=== PATIENT | male | born 1940 | race Caucasian/White ===

== ENCOUNTER 2017-11-18 08:00 | Outpatient (RCR) | payer MEDICARE, OTHER, SELFPAY ==
--- NOTE | 2017-09-14 09:50 | HP.PTEVAL_ITS ---
Patient's Visit Information THOMAS PETERSON is a 77 year old M referred to Physical Therapy by Efrain Sahu MD with a diagnosis of Unsteady gait. Date of Evaluation: 09/14/17 Physical Therapist: Javon Ortiz DPT, [place] - Visit Plan Frequency: 2x /Week Duration: 4-6 Weeks Plan: RECOMMENDED... patient return to doctor due to obvious undiagnosed weakness/neuropathy effecting strength adn sensation in feet and ankles. Recommend doctor look into this and see if other testing/treatment is necessary. Therapy appropriate after this check up for. 1. neurocom balance assessment(will need doctor order). 2. ankle strength and ROM. 3. balance related weight shift exercises adn progress to HEP. Pt to call after doctor visit to schedule or inform me on doctors recommendations. - Subjective Subjective: H/O knee problems after falling off a roof in .Biggest problem now is standing in one position to work or talk. he has to keep moving his feet like a child who has to go potty. Does OK walking. This has been going on 6-7 months. Pain not an issue. No numbness. No spinning. This constant movement of feet is just annoying. and he lives by himself. Does everything himself but not as active as he used to be. Careful with what he does. Walks alot and it is not a problem even on uneven ground. Basic ADLs are Ok. [address] acres at home adn he works it well. Sleeps well but has to self cath to urinate. - Objective Walks with very little weight shift and slight steppage gait. Knees bent much of time, hunched forward. Trasnfers I without UE. Steps require railing for safety. Static balance is fair - as he tends posterior na dn needs a small back step often to recover. With focus, he can mitigate this. Ankle strength is poor at 2+ R DF and 3- L DF, inv and eversion are 3- B , PF is 3+ B and unable to heel raise. Knee and hip strength are 4/5. Sensation in LE seems diminished to gross light touch more laterally distal. reflexes show no clonus , 1/3 patella and achilles B. VOR walking is OK. - Balance Scores Functional Gait Assessment Score: 21 % Disability: 30.0000 CATSIB Score (Max score 120 seconds): 65 - Goals Goal 1:: FGA to diminish fall risk Goal Time Frame: 4-6 Weeks Goal 2:: Stand and talk/work without taking multiple balance steps and report 50 % improvement in this condition. Goal Time Frame: 4-6 Weeks Goal 3:: I approp HEP to limit future digression Goal Time Frame: 4-6 Weeks - Rehabilitation Potential Physical Therapy Diagnosis: Unsteady gait/stance likely due to neuropathy of unknown etiology at this point Rehabilitation Potential: Questionable - Anticipated Interventions Patient/Client Instruction: Educate patient on: Condition, Risk Factors For the Purpose of:: To improve safety with gait Therapeutic Exercise to Include: Strength training, Balance training, Active ROM Comment: ankles and weight shifts For the Purpose of:: To improve muscle performance and motor function, To improve safety with gait Thank you for the opportunity to evaluate your patient. For Medicare and Medicare HMO plans, please review the plan of care and approve it. It will need to be FAXED BACK to us at [phone] for Medicare purposes. Please let me know if there are questions or concerns regarding this plan of care. Physician Signature: Date:
--- NOTE | 2017-10-04 15:09 | HP.PTCOM ---
PT Communication Note 10/04/[address] Efrain Sahu MD , Thank you for the referral of Zelalem Mcnair to our clinic. Today he was tested on our [employer] Balance Machine and enclosed are the patients test results. Looking at the results of the Sensory Organization Test (SOT), the pt's overall score is significantly low for someone of his age. He had trouble using all 3 of her sensory systems to help him maintain his balance. I did recommend that the patient use an assistive device for safety. His center of gravity alignment is slightly more to the Left as well. On the Motor Control Test (MCT), the pt's overall score was in the normal range but every time the force plate moved the pt immediately reached for the velez to prevent a fall. The patients score on the Limits of Stability Test (LOS) was unable to compile due to the pt losing his balance with every trial. At this point, I will see the pt to work on hip and ankle strength, weight shifting, gait training with an assistive device with HEP. Pt might benefit from Nerve Conduction Test, ankle braces and/or a Neuro consult. Sincerely, Jigna Tolentino Contact Information
--- NOTE | 2017-10-04 15:18 | HP.PTCOM_ITS ---
PT Communication Note 10/04/[address] Efrain Sahu MD , Thank you for the referral of Zelalem Mcnair to our clinic. Today he was tested on our [employer] Balance Machine and enclosed are the patients test results. Looking at the results of the Sensory Organization Test (SOT), the pt's overall score is significantly low for someone of his age. He had trouble using all 3 of her sensory systems to help him maintain his balance. I did recommend that the patient use an assistive device for safety. His center of gravity alignment is slightly more to the Left as well. On the Motor Control Test (MCT), the pt's overall score was in the normal range but every time the force plate moved the pt immediately reached for the velez to prevent a fall. The patients score on the Limits of Stability Test (LOS) was unable to compile due to the pt losing his balance with every trial. At this point, I will see the pt to work on hip and ankle strength, weight shifting, gait training with an assistive device with HEP. Pt might benefit from Nerve Conduction Test, ankle braces and/or a Neuro consult. Sincerely, Jigna Tolentino Contact Information
--- NOTE | 2017-10-31 08:36 | HP.PTREVAL_ITS ---
Efrain Sahu MD, It has been my pleasure to treat THOMAS Vincent KIDNEY over the last 9 visits for Unsteady gait. Please see the progress note below for an update on the physical therapy plan of care! Subjective: Worthwhile. Doing some exercises a lot better when came in and feels more limber. Balance is not much different. Still stumbles BW at times. Soem days better than others. No f/u scheduled with doctor. Repeating exercises with bands at home. No falls and does not wish to use cane. Objective/Function: EDEL is +3 overall and he does well while he is moving , static balance is still intermittently challenging as he tends to take small corrrective steps posterior often. Weakness in ankles persists and is not changing. IMPROVING SLOWLY Plan Plan: COTNINUE 2X/WEEK X 3-4 WEEKS, PLEASE DO UPPER LEVEL BALNCE IN THERAPY, PLEASE ADD GYM EX FOR LE STRENGTH AND POSTURAL STRENGTH AND PROGRESS TO I WITH LIST PT WILL JOIN AFTER D/C AND CONTINUE 3X/WEEK ON OWN. Goals Goal 1:: FGA to diminish fall risk Goal Time Frame: 4-6 Weeks Goal Progress: Goal Met Goal 2:: Stand and talk/work without taking multiple balance steps and report 50 % improvement in this condition. Goal Time Frame: 4-6 Weeks Goal Progress: slightly better. Goal 3:: I approp HEP to limit future digression Goal Time Frame: 4-6 Weeks Goal Progress: Goal Met Goal 4:: Be able to demonstrate how to walk with a cane properly. Goal Time Frame: 4-6 Weeks Goal Progress: not using. Goal 5:: pT i IN APPROP GYM EX FOR LE AND POSTURAL STRENGTH Goal Time Frame: 2-4 Weeks Goal Progress: NEW GOAL Goal 6:: PT ABLE TO STAND 30 SECONDS 3X WITHOUT CORRECTIVE POSTERIOR STEPS. Goal Time Frame: 2-4 Weeks Goal Progress: NEW GOAL Anticipated Interventions Patient/Client Instruction: Educate patient on: Condition, Risk Factors For the Purpose of:: To improve safety with gait Therapeutic Exercise to Include: Strength training, Balance training, Active ROM Comment: ankles and weight shifts For the Purpose of:: To improve muscle performance and motor function, To improve safety with gait Please do not hesitate to contact me at [phone] by phone or Fax: if you have questions or concerns regarding this new plan of care! Sincerely, Javon Ortiz, DPT, [place]
--- NOTE | 2017-11-18 09:34 | HP.PTDCSUM_ITS ---
HP - PT D/C Summary It has been my pleasure to treat THOMAS Vincent KIDNEY under orders from Efrain Sahu MD, for the diagnosis of Unsteady gait for a total of 15 visit(s). Discharge Date: 11/18/17 Please see the following information for a summary of their discharge status. - Subjective Subjective: Going the right way, feels more flexible. Stadning in one place can still be challenging but is better. Exercises at home are going well. Will continue HEP and gym ex 3x/week each. - Pain L knee pain Pain Intensity (Out of 10): 0 - Overall Improvement % Improvement: 70 - Objective Objective/Function: FGA at ,. Interestingly, pt able to stand 40+ seconds without BW step strategy when therapist working on computer but immediate post step strategy when I approach patient. - Goals Goal 1:: FGA to diminish fall risk Goal Progress: Goal Met Goal 2:: Stand and talk/work without taking multiple balance steps and report 50 % improvement in this condition. Goal Progress: Progressing Goal 3:: I approp HEP to limit future digression Goal Progress: Goal Met Goal 4:: Be able to demonstrate how to walk with a cane properly. Goal Progress: has one, not needed. Goal 5:: pT i IN APPROP GYM EX FOR LE AND POSTURAL STRENGTH Goal Progress: Goal Met Goal 6:: PT ABLE TO STAND 30 SECONDS 3X WITHOUT CORRECTIVE POSTERIOR STEPS. Goal Progress: inconsistent - Plan Plan: D/C to HEP - D/C Information Discharge Comments: pt did very well with improvement and is I with HEP and gym ex which he will continue until doctor f/u in December. If there are questions or concerns regarding this patient's physical therapy, please feel free to call me at [phone]. Thank you for the referral of this patient. Sincerely, Javon Ortiz, DPT, OC
== END 2017-11-18 13:46 | disposition home or self-care (01) ==
LOC: PT 08:00
PROVIDERS: Family Provider Internal Medicine; PCP Internal Medicine; Visit Provider Internal Medicine
DX: R26.81 Unsteadiness on feet (principal)
CPT/HCPCS: 97110; 97163; 97530; 97750

== ENCOUNTER → 2017-12-08 07:42 | Outpatient (CLI) | payer MEDICARE, OTHER, SELFPAY ==
[2017-12-08 10:26] LABS: Absolute Neutrophil Count 2.9 X10^3/uL (2.0-7.7); Basophil# 0.02 X10^3/uL; Basophil% 0.4 % (0-1); Eosinophil# 0.06 X10^3/uL; Eosinophils% 1.3 % (0-5); Hematocrit 46.2 % (40-54); Hemoglobin 14.9 g/dl (13.0-16.5); Lymphocyte % 25.6 % (19-41); Mean Corp Hgb Conc 32.3 g/gl (32-36); Mean Corpuscular Hgb 32.7 pg (27.0-32.0); Mean Corpuscular Volume 101.5 fL (80-94); Mean Platelet Vol. 9.6 fl (6.2-12.0); Monocyte# 0.52 X10^3/uL; Monocyte% 11.1 % (0-10); Neutrophil # 2.89 X10^3/uL (2.7-7.7); Neutrophil % 61.6 % (47-70); Platelet Count 199 K/mm3 (150-450); RBC Distribution Width CV 13.2 % (11.6-14.6); RBC Distribution Width SD 49.3 fl (35.1-43.9); Red Blood Count 4.55 M/mm3 (4.6-6.2); White Blood Count 4.7 K/mm3 (4.4-11.0)
[2017-12-08 10:38] LABS: POSITIVE COUNT NO; POSITIVE DIFFERENTIAL NO; POSITIVE MORPHOLOGY NO
[2017-12-08 11:03] LABS: AST(SGOT) 30 U/L (15-37); Alanine Aminotransfer ALT/SGPT 24 U/L (16-61); Alkaline Phosphatase 73 U/L (45-117); Anion Gap 8 (5-15); BUN 24 mg/dL (7-18); Calcium,Total 10.3 mg/dL (8.5-10.1); Chloride 103 mmol/L (98-107); Cholesterol 176 mg/dL (200); EST Glomerular Filtration Rate 77 mL/min (>60); Est Glom Filt Rate - Afr Amer 94 mL/min (>60); Globulin 3.9 g/dL (2.2-4.2); Glucose 92 mg/dL (74-106); High Density Lipoprotein 48 mg/dL; Potassium 4.5 mmol/L (3.5-5.1); Protein, Total 7.9 g/dL (6.4-8.2); Sodium Level 138 mmol/L (136-145); Triglycerides 61 mg/dL; Very Low Density Lipoprotein 12 mg/dL (5-40)
== END ==
PROVIDERS: Family Provider Internal Medicine; PCP Internal Medicine; Visit Provider Internal Medicine
DX: Z00.00 Encounter for general adult medical examination without abnormal findings (principal); I10 Essential (primary) hypertension; R26.81 Unsteadiness on feet; Z12.11 Encounter for screening for malignant neoplasm of colon
CPT/HCPCS: 36415; 80053; 80061; 82274; 85025

== ENCOUNTER → 2018-07-05 07:10 | Outpatient (CLI) | payer MEDICARE, OTHER, SELFPAY ==
[2018-06-27 08:59] VITALS: BMI 23.6
[2018-07-05 08:06] LABS: Erythrocyte Sedimentation Rate 2 mm/hr (0-20)
[2018-07-05 08:21] LABS: ALB/GLOB Ratio 1.1 RATIO (0.9-2.4); AST(SGOT) 36 U/L (15-37); Alanine Aminotransfer ALT/SGPT 36 U/L (16-61); Albumin, Serum 3.7 g/dL (3.2-5.0); Alkaline Phosphatase 72 U/L (45-117); Anion Gap 7 (5-15); BUN 25 mg/dL (7-18); CRP < 2.90 mg/L (0.0-3.0); Calcium,Total 9.5 mg/dL (8.5-10.1); Chloride 105 mmol/L (98-107); Creatinine, Serum 0.93 mg/dL (0.70-1.30); EST Glomerular Filtration Rate 84 mL/min (>60); Est Glom Filt Rate - Afr Amer 102 mL/min (>60); Globulin 3.5 g/dL (2.2-4.2); Glucose 104 mg/dL (74-106); Potassium 4.2 mmol/L (3.5-5.1); Protein, Total 7.2 g/dL (6.4-8.2); Sodium Level 140 mmol/L (136-145); Thyroid Stim Hormone (TSH) 0.51 uIU/mL (0.358-3.74)
[2018-07-05 08:46] LABS: Vitamin B12 754 pg/mL (211-911)
[2018-07-06 16:08] LABS: PROELU- Albumin, Urine 25.6 % (.); PROELU- Alpha-1-Globulin,Ur 3.7 % (.); PROELU- Alpha-2-Globulin,Ur 16.9 % (.); PROELU- Beta Globulin, Ur 35.5 % (.); PROELU- Gamma Globulin, Ur 18.3 % (.); Total Protein, Ur 14.3 mg/dL (Not Estab.)
[2018-07-07 20:06] LABS: PROEL- A/G Ratio 1.2 (0.7-1.7); PROEL- Albumin 3.6 g/dL (2.9-4.4); PROEL- Alpha-1 Globulin 0.2 g/dL (0.0-0.4); PROEL- Alpha-2 Globulin 0.7 g/dL (0.4-1.0); PROEL- Gamma Globulin 1.1 g/dL (0.4-1.8); PROEL- TOTAL PROTEIN 6.6 g/dL (6.0-8.5)
[2018-07-10 11:22] LABS: Arsenic 7245 4 ug/L (2-23)
== END ==
PROVIDERS: Family Provider Internal Medicine; PCP Internal Medicine; Referring Provider Psychiatry & Neurology Neurology; Visit Provider Psychiatry & Neurology Neurology
DX: G62.9 Polyneuropathy, unspecified (principal); I10 Essential (primary) hypertension
CPT/HCPCS: 36415; 80053; 82175; 82607; 83655; 83825; 84165; 84166; 84443; 85652; 86140

== ENCOUNTER 2018-09-12 06:39 | Outpatient (RCR) | payer MEDICARE, OTHER, SELFPAY ==
[2018-07-11 08:09] VITALS: BMI 23.6
== END 2018-09-12 19:00 | disposition home or self-care (01) ==
LOC: PT 06:39
PROVIDERS: Family Provider Internal Medicine; PCP Internal Medicine; Referring Provider Nurse Practitioner Family; Visit Provider Nurse Practitioner Family
DX: G62.9 Polyneuropathy, unspecified (principal); M21.372 Foot drop, left foot; R26.89 Other abnormalities of gait and mobility

== ENCOUNTER → 2019-01-05 07:10 | Outpatient (CLI) | payer MEDICARE, OTHER, SELFPAY ==
[2018-07-11 08:09] VITALS: BMI 23.6
[2019-01-05 10:42] LABS: Absolute Lymphocyte Count 1.38 X10^3/uL (0.83-4.51); Absolute Neutrophil Count 3.7 X10^3/uL (2.0-7.7); Basophil# 0.03 X10^3/uL; Basophil% 0.5 % (0-1); Eosinophil# 0.09 X10^3/uL; Eosinophils% 1.5 % (0-5); Hematocrit 46.3 % (40-54); Lymphocyte # 1.38 X10^3/ul (4.0); Lymphocyte % 23.5 % (19-41); Mean Corp Hgb Conc 32.4 g/dL (32-36); Mean Corpuscular Hgb 32.8 pg (27.0-32.0); Mean Corpuscular Volume 101.3 fL (80-94); Mean Platelet Vol. 9.6 fl (6.2-12.0); Monocyte# 0.71 X10^3/uL; Monocyte% 12.1 % (0-10); NRBC Flagged by Analyzer 0 % (0-5); Neutrophil # 3.65 X10^3/uL (2.7-7.7); Neutrophil % 62.2 % (47-70); Platelet Count 192 K/mm3 (150-450); RBC Distribution Width CV 13.1 % (11.6-14.6); RBC Distribution Width SD 49.2 fl (35.1-43.9); Red Blood Count 4.57 M/mm3 (4.6-6.2); White Blood Count 5.9 K/mm3 (4.4-11.0)
[2019-01-05 10:43] LABS: ALB/GLOB Ratio 1.1 RATIO (0.9-2.4); AST(SGOT) 26 U/L (15-37); Alanine Aminotransfer ALT/SGPT 28 U/L (16-61); Albumin, Serum 3.8 g/dL (3.2-5.0); Alkaline Phosphatase 73 U/L (45-117); Anion Gap 4 (5-15); BUN 25 mg/dL (7-18); Calcium,Total 10.1 mg/dL (8.5-10.1); Chloride 105 mmol/L (98-107); Cholesterol 185 mg/dL (200); Creatinine, Serum 0.89 mg/dL (0.70-1.30); EST Glomerular Filtration Rate 88 mL/min (>60); Est Glom Filt Rate - Afr Amer 106 mL/min (>60); Globulin 3.6 g/dL (2.2-4.2); Glucose 90 mg/dL (74-106); High Density Lipoprotein 46 mg/dL; Potassium 4.8 mmol/L (3.5-5.1); Protein, Total 7.4 g/dL (6.4-8.2); Sodium Level 140 mmol/L (136-145); Triglycerides 66 mg/dL; Very Low Density Lipoprotein 13 mg/dL (5-40)
== END ==
PROVIDERS: Family Provider Internal Medicine; PCP Internal Medicine; Referring Provider Internal Medicine; Visit Provider Internal Medicine
DX: Z12.5 Encounter for screening for malignant neoplasm of prostate (principal); I10 Essential (primary) hypertension
CPT/HCPCS: 36415; 80053; 80061; 84153; 85025; G0103

== ENCOUNTER → 2019-05-25 07:03 | Outpatient (CLI) | payer MEDICARE, OTHER, SELFPAY ==
[2019-05-24 10:04] VITALS: BMI 23.9
[2019-05-25 12:03] LABS: ALB/GLOB Ratio 0.8 RATIO (0.9-2.4); AST(SGOT) 24 U/L (15-37); Alanine Aminotransfer ALT/SGPT 21 U/L (16-61); Albumin, Serum 3.7 g/dL (3.2-5.0); Alkaline Phosphatase 101 U/L (45-117); Anion Gap 5 (5-15); BUN 25 mg/dL (7-18); BUN/Creat Ratio 28.6 RATIO (10-20); Calcium,Total 10.2 mg/dL (8.5-10.1); Chloride 104 mmol/L (98-107); Creatinine, Serum 0.87 mg/dL (0.70-1.30); EST Glomerular Filtration Rate 90 mL/min (>60); Est Glom Filt Rate - Afr Amer 109 mL/min (>60); Globulin 4.4 g/dL (2.2-4.2); Glucose 97 mg/dL (74-106); Protein, Total 8.1 g/dL (6.4-8.2); Sodium Level 138 mmol/L (136-145)
[2019-05-26 20:07] LABS: Free Kappa Light Chains 29.9 mg/L (3.3-19.4); Free Lambda Light Chains 17.8 mg/L (5.7-26.3)
== END ==
PROVIDERS: PCP Internal Medicine; Referring Provider Psychiatry & Neurology Neurology; Visit Provider Psychiatry & Neurology Neurology
DX: G62.9 Polyneuropathy, unspecified (principal)
CPT/HCPCS: 36415; 80053; 82746; 83883

== ENCOUNTER → 2019-07-31 13:41 | Outpatient (CLI) | payer MEDICARE, OTHER, SELFPAY ==
[2019-07-20 08:05] VITALS: BMI 23.9
[2019-07-31 15:02] LABS: PSA,Total- Diagnostic 0.77 ng/mL (0.0-4.0)
== END ==
PROVIDERS: PCP Internal Medicine; Referring Provider Urology; Visit Provider Urology
DX: R97.20 Elevated prostate specific antigen [PSA] (principal)
CPT/HCPCS: 36415; 84153

== ENCOUNTER → 2019-09-05 11:55 | Outpatient (CLI) | payer MEDICARE, OTHER, SELFPAY ==
[2019-05-24 10:04] VITALS: BMI 23.9
[2019-07-20 08:05] VITALS: BMI 23.9
--- NOTE | 2019-09-05 15:53 | NEURO ---
NCS and/or EMG Patient Report Ordering Doctor: Jimmy Khalil DATE OF SERVICE: 09/05/19 Zelalem Mcnair is a 79-year-old male with complaints of weakness and numbness in both legs. He reports right foot drop. He ambulates with braces on both legs. Electrodiagnostic findings: Absent peroneal motor response bilaterally. Absent tibial motor response bilaterally. Left H reflex was obtained and prolonged. Right H reflex could not be obtained. Sensory responses were unobtainable. On needle EMG, decreased recruitment pattern noted bilaterally in the vastus medialis, peroneus longus and gastrocnemius. 1+ fibrillations in the left anterior tibialis and right gastrocnemius. No motor units were found in the right anterior tibialis with complete atrophy of the muscle noted. Motor units of increased amplitude and duration were noted in the peroneus longus. No denervation noted in the lumbar paraspinals. Electrodiagnostic impression: This is an abnormal study in the lower limbs 1. 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 There is significant atrophy of musculature in the lower limbs. Etiology of this is not known, though the patient does admit to significant chemical exposure several years ago. 2. No electrodiagnostic evidence is noted for lumbosacral radiculopathy. If there are any questions please do not hesitate to contact me
== END ==
PROVIDERS: PCP Internal Medicine; Referring Provider Psychiatry & Neurology Neurology; Visit Provider Psychiatry & Neurology Neurology
DX: G57.93 Unspecified mononeuropathy of bilateral lower limbs (principal); G62.9 Polyneuropathy, unspecified
CPT/HCPCS: 95886; 95911

== ENCOUNTER → 2019-09-13 15:43 | Outpatient (CLI) | payer MEDICARE, OTHER, SELFPAY ==
[2019-09-13 15:06] VITALS: BMI 23.9
[2019-09-17 16:08] LABS: Albumin 3.9 g/dL (2.9-4.4); Alpha-1-Globulins 0.3 g/dL (0.0-0.4); Alpha-2-Globulins 0.8 g/dL (0.4-1.0); Gamma Globulin 1.3 g/dL (0.4-1.8); Immunoglobulin A 264 mg/dL (61-437); Immunoglobulin G 1346 mg/dL (603-1613); Immunoglobulin M 32 mg/dL (15-143); PROEL- TOTAL PROTEIN 7.3 g/dL (6.0-8.5)
== END ==
PROVIDERS: PCP Internal Medicine; Referring Provider Nurse Practitioner Family; Visit Provider Nurse Practitioner Family
DX: G62.9 Polyneuropathy, unspecified (principal)
CPT/HCPCS: 36415; 82784; 84165; 84166; 86334; 86335

== ENCOUNTER → 2019-09-14 06:17 | Outpatient (CLI) | payer MEDICARE, OTHER, SELFPAY ==
[2019-09-13 15:06] VITALS: BMI 23.9
[2019-09-18 14:08] LABS: Alpha-1-Globulin, Ur 4.7 % (.); Alpha-2-Globulins, Ur 14.8 % (.); Beta Globulin, Ur 27.5 % (.); M-Spike, Ur % Not Observed % (Not Observed); Total Protein, Ur 12.7 mg/dL (Not Estab.)
== END ==
PROVIDERS: PCP Internal Medicine; Referring Provider Nurse Practitioner Family; Visit Provider Nurse Practitioner Family
DX: G62.9 Polyneuropathy, unspecified (principal)
CPT/HCPCS: 84166; 86335

== ENCOUNTER → 2020-01-22 08:43 | Outpatient (CLI) | payer MEDICARE, OTHER, SELFPAY ==
[2020-01-22 08:10] VITALS: BMI 20.7
[2020-01-22 12:44] LABS: Absolute Lymphocyte Count 1.28 X10^3/uL (0.83-4.51); Absolute Neutrophil Count 4.3 X10^3/uL (2.0-7.7); Basophil# 0.03 X10^3/uL; Basophil% 0.5 % (0-1); Eosinophil# 0.05 X10^3/uL; Eosinophils% 0.8 % (0-5); Hematocrit 46.3 % (40-54); Hemoglobin 14.8 g/dL (13.0-16.5); Lymphocyte # 1.28 X10^3/ul (4.0); Lymphocyte % 20.5 % (19-41); Mean Corpuscular Hgb 32.4 pg (27.0-32.0); Mean Corpuscular Volume 101.3 fL (80-94); Mean Platelet Vol. 9.7 fl (6.2-12.0); Monocyte# 0.55 X10^3/uL; Monocyte% 8.8 % (0-10); NRBC Flagged by Analyzer 0 % (0-5); Neutrophil # 4.32 X10^3/uL (2.7-7.7); Neutrophil % 69.2 % (47-70); Platelet Count 196 K/mm3 (150-450); RBC Distribution Width SD 48.4 fl (35.1-43.9); Red Blood Count 4.57 M/mm3 (4.6-6.2); White Blood Count 6.2 K/mm3 (4.4-11.0)
[2020-01-22 12:52] LABS: AST(SGOT) 20 U/L (15-37); Alanine Aminotransfer ALT/SGPT 21 U/L (16-61); Albumin, Serum 3.9 g/dL (3.2-5.0); Alkaline Phosphatase 85 U/L (45-117); Anion Gap 7 (5-15); BUN 24 mg/dL (7-18); BUN/Creat Ratio 27.4 RATIO (10-20); Calcium,Total 9.8 mg/dL (8.5-10.1); Chloride 103 mmol/L (98-107); Cholesterol 182 mg/dL (200); Creatinine, Serum 0.88 mg/dL (0.70-1.30); EST Glomerular Filtration Rate 89 mL/min (>60); Est Glom Filt Rate - Afr Amer 108 mL/min (>60); Globulin 4.1 g/dL (2.2-4.2); Glucose 97 mg/dL (74-106); High Density Lipoprotein 54 mg/dL; Sodium Level 138 mmol/L (136-145); Triglycerides 77 mg/dL; Very Low Density Lipoprotein 15 mg/dL (5-40)
== END ==
PROVIDERS: PCP Internal Medicine; Referring Provider Internal Medicine; Visit Provider Internal Medicine
DX: I10 Essential (primary) hypertension (principal)
CPT/HCPCS: 36415; 80053; 80061; 85025

== ENCOUNTER → 2020-01-30 08:26 | Outpatient (CLI) | payer MEDICARE, OTHER, SELFPAY ==
[2020-01-22 08:49] VITALS: BMI 20.7
[2020-01-31 16:08] LABS: Free Lambda Light Chains 18.1 mg/L (5.7-26.3)
== END ==
PROVIDERS: PCP Internal Medicine; Referring Provider Nurse Practitioner Family; Visit Provider Nurse Practitioner Family
DX: G62.9 Polyneuropathy, unspecified (principal)
CPT/HCPCS: 36415; 83883

== ENCOUNTER → 2020-08-07 09:04 | Outpatient (CLI) | payer MEDICARE, OTHER, SELFPAY ==
[2020-07-21 08:14] VITALS: BMI 20.7
[2020-08-08 20:08] LABS: Albumin 3.9 g/dL (2.9-4.4); Alpha-1-Globulins 0.3 g/dL (0.0-0.4); Alpha-2-Globulins 0.9 g/dL (0.4-1.0); Free Kappa Light Chains 27.1 mg/L (3.3-19.4); Gamma Globulin 0.9 g/dL (0.4-1.8); Immunoglobulin A 247 mg/dL (61-437); Immunoglobulin G 1228 mg/dL (603-1613); Immunoglobulin M 30 mg/dL (15-143); PROEL- TOTAL PROTEIN 7.2 g/dL (6.0-8.5)
== END ==
PROVIDERS: PCP Internal Medicine; Referring Provider Nurse Practitioner Family; Visit Provider Nurse Practitioner Family
DX: G62.9 Polyneuropathy, unspecified (principal)
CPT/HCPCS: 36415; 82784; 83883; 84165; 86334; 86335

== ENCOUNTER → 2021-01-20 08:04 | Outpatient (CLI) | payer MEDICARE, OTHER, SELFPAY ==
[2021-01-20 12:23] LABS: Absolute Lymphocyte Count 1.71 X10^3/uL (0.83-4.51); Absolute Neutrophil Count 3.8 X10^3/uL (2.0-7.7); Basophil# 0.03 X10^3/uL; Basophil% 0.5 % (0-1); Eosinophil# 0.13 X10^3/uL; Eosinophils% 2.1 % (0-5); Hematocrit 45.2 % (40-54); Hemoglobin 14.9 g/dL (13.0-16.5); Lymphocyte # 1.71 X10^3/ul (0.83-4.51); Lymphocyte % 27.1 % (19-41); Mean Corpuscular Hgb 33.6 pg (27.0-32.0); Mean Platelet Vol. 9.7 fl (6.2-12.0); Monocyte# 0.67 X10^3/uL; Monocyte% 10.6 % (0-10); NRBC Flagged by Analyzer 0 % (0-5); Neutrophil # 3.76 X10^3/uL (2.7-7.7); Neutrophil % 59.5 % (47-70); Platelet Count 205 K/mm3 (150-450); RBC Distribution Width CV 13.2 % (11.6-14.6); RBC Distribution Width SD 50.3 fl (35.1-43.9); Red Blood Count 4.43 M/mm3 (4.6-6.2); White Blood Count 6.3 K/mm3 (4.4-11.0)
[2021-01-20 12:41] LABS: ALB/GLOB Ratio 0.9 RATIO (0.9-2.4); AST(SGOT) 25 U/L (15-37); Alanine Aminotransfer ALT/SGPT 29 U/L (16-61); Albumin, Serum 3.7 g/dL (3.2-5.0); Alkaline Phosphatase 77 U/L (45-117); Anion Gap 4 (5-15); BUN 28 mg/dL (7-18); BUN/Creat Ratio 27.2 RATIO (10-20); Calcium,Total 10.2 mg/dL (8.5-10.1); Chloride 105 mmol/L (98-107); Cholesterol 181 mg/dL (200); Creatinine, Serum 1.03 mg/dL (0.70-1.30); EST Glomerular Filtration Rate 74 mL/min (>60); Est Glom Filt Rate - Afr Amer 90 mL/min (>60); Globulin 4.1 g/dL (2.2-4.2); Glucose 106 mg/dL (74-106); High Density Lipoprotein 52 mg/dL; Potassium 4.2 mmol/L (3.5-5.1); Protein, Total 7.8 g/dL (6.4-8.2); Sodium Level 138 mmol/L (136-145); Triglycerides 56 mg/dL; Very Low Density Lipoprotein 11 mg/dL (5-40)
== END ==
PROVIDERS: PCP Internal Medicine; Referring Provider Internal Medicine; Visit Provider Internal Medicine
DX: I10 Essential (primary) hypertension (principal)
CPT/HCPCS: 36415; 80053; 80061; 85025

== ENCOUNTER → 2022-01-20 | Outpatient (CLI) | payer MEDICARE, OTHER, SELFPAY ==
[2022-01-20 12:55] LABS: Absolute Lymphocyte Count 1.43 X10^3/uL (0.83-4.51); Absolute Neutrophil Count 3.5 X10^3/uL (2.0-7.7); Basophil# 0.03 X10^3/uL; Basophil% 0.5 % (0-1); Eosinophil# 0.11 X10^3/uL; Eosinophils% 1.9 % (0-5); Hematocrit 44.2 % (40-54); Hemoglobin 14.7 g/dL (13.0-16.5); Lymphocyte # 1.43 X10^3/ul (0.83-4.51); Mean Corp Hgb Conc 33.3 g/dL (32-36); Mean Corpuscular Hgb 33.9 pg (27.0-32.0); Mean Corpuscular Volume 101.8 fL (80-94); Mean Platelet Vol. 9.5 fl (6.2-12.0); Monocyte# 0.62 X10^3/uL; Monocyte% 10.8 % (0-10); NRBC Flagged by Analyzer 0 % (0-5); Neutrophil # 3.52 X10^3/uL (2.7-7.7); Neutrophil % 61.6 % (47-70); Platelet Count 198 K/mm3 (150-450); RBC Distribution Width CV 12.9 % (11.6-14.6); RBC Distribution Width SD 48.6 fl (35.1-43.9); Red Blood Count 4.34 M/mm3 (4.6-6.2); White Blood Count 5.7 K/mm3 (4.4-11.0)
[2022-01-20 13:10] LABS: AST(SGOT) 23 U/L (15-37); Alanine Aminotransfer ALT/SGPT 23 U/L (16-61); Albumin, Serum 3.8 g/dL (3.2-5.0); Alkaline Phosphatase 72 U/L (45-117); Anion Gap 7 (5-15); BUN 29 mg/dL (7-18); BUN/Creat Ratio 31.2 RATIO (10-20); Calcium,Total 10.1 mg/dL (8.5-10.1); Chloride 105 mmol/L (98-107); Cholesterol 184 mg/dL (200); Creatinine, Serum 0.93 mg/dL (0.70-1.30); EST Glomerular Filtration Rate 83 mL/min (>60); Est Glom Filt Rate - Afr Amer 101 mL/min (>60); Globulin 3.7 g/dL (2.2-4.2); Glucose 102 mg/dL (74-106); High Density Lipoprotein 55 mg/dL; Protein, Total 7.5 g/dL (6.4-8.2); Sodium Level 139 mmol/L (136-145); Triglycerides 54 mg/dL; Very Low Density Lipoprotein 11 mg/dL (5-40)
== END | disposition home or self-care (01) ==
LOC: BIMLAB 09:21
PROVIDERS: PCP Internal Medicine; Referring Provider Internal Medicine; Visit Provider Internal Medicine
DX: I10 Essential (primary) hypertension (principal)
CPT/HCPCS: 36415; 80053; 80061; 85025

== ENCOUNTER → 2022-02-01 | Outpatient (CLI) | payer MEDICARE, OTHER, SELFPAY | END | disposition home or self-care (01) | LOC: LABSPEC 08:26 | PROVIDERS: PCP Internal Medicine; Referring Provider Internal Medicine; Visit Provider Internal Medicine | DX: R79.89 Other specified abnormal findings of blood chemistry (principal) | CPT/HCPCS: 82274 ==

== ENCOUNTER → 2022-02-10 | Outpatient (CLI) | payer MEDICARE, OTHER, SELFPAY ==
--- NOTE | 2022-02-10 13:37 | RAD_ITS ---
STUDY: X-RAY CHEST REASON FOR EXAM: Male, 81 years old. Fever. Crackles at lung bases. TECHNIQUE: Frontal and lateral views of the chest. COMPARISON: December 23, 2015. FINDINGS: Low volume inspiration with mild elevation of both hemidiaphragms. Mild diffuse interstitial pattern. There is no demonstrated pleural abnormality. Cardiomegaly. Normal mediastinum and kathy. Normal visualized pulmonary arteries. Aortic tortuosity with calcification. Diffuse moderate thoracic spondylosis with increased kyphosis. Normal visualized ribs, clavicles, and shoulders. There is no demonstrated abnormality of the visualized soft tissue structures of the upper abdomen. RAD/Chest PA and Lateral IMPRESSION: Stable chest with no acute superimposed findings. No active or acute cardiopulmonary disease. Electronically Signed: Pavan Barragan, at 15:29 EST ,
[2022-02-10 15:27] LABS: Absolute Lymphocyte Count 0.69 X10^3/uL (0.83-4.51); Absolute Neutrophil Count 7.6 X10^3/uL (2.0-7.7); Basophil# 0.03 X10^3/uL; Basophil% 0.3 % (0-1); Eosinophil# 0.02 X10^3/uL; Eosinophils% 0.2 % (0-5); Hematocrit 41.2 % (40-54); Lymphocyte # 0.69 X10^3/ul (0.83-4.51); Lymphocyte % 7.4 % (19-41); Mean Corpuscular Hgb 33.7 pg (27.0-32.0); Mean Platelet Vol. 9.1 fl (6.2-12.0); Monocyte# 1.04 X10^3/uL; Monocyte% 11.1 % (0-10); NRBC Flagged by Analyzer 0 % (0-5); Neutrophil # 7.58 X10^3/uL (2.7-7.7); Neutrophil % 80.8 % (47-70); Platelet Count 222 K/mm3 (150-450); RBC Distribution Width CV 12.5 % (11.6-14.6); RBC Distribution Width SD 46.1 fl (35.1-43.9); Red Blood Count 4.16 M/mm3 (4.6-6.2); White Blood Count 9.4 K/mm3 (4.4-11.0)
[2022-02-10 16:00] LABS: AST(SGOT) 44 U/L (15-37); Alanine Aminotransfer ALT/SGPT 27 U/L (16-61); Albumin, Serum 3.6 g/dL (3.2-5.0); Alkaline Phosphatase 73 U/L (45-117); Anion Gap 9 (5-15); BUN 36 mg/dL (7-18); BUN/Creat Ratio 39.7 RATIO (10-20); Calcium,Total 9.9 mg/dL (8.5-10.1); Chloride 99 mmol/L (98-107); Creatinine, Serum 0.91 mg/dL (0.70-1.30); EST Glomerular Filtration Rate 86 mL/min (>60); Est Glom Filt Rate - Afr Amer 104 mL/min (>60); Globulin 3.5 g/dL (2.2-4.2); Glucose 125 mg/dL (74-106); Magnesium 2.1 mg/dL (1.6-2.6); Protein, Total 7.1 g/dL (6.4-8.2); Sodium Level 134 mmol/L (136-145)
== END | disposition home or self-care (01) ==
LOC: MTLAB 13:35
PROVIDERS: PCP Internal Medicine; Referring Provider Psychiatry & Neurology Neurology; Visit Provider Psychiatry & Neurology Neurology
DX: R50.9 Fever, unspecified (principal); R09.89 Other specified symptoms and signs involving the circulatory and respiratory systems; I10 Essential (primary) hypertension; G62.9 Polyneuropathy, unspecified
CPT/HCPCS: 36415; 71046; 80053; 83735; 85025

== ENCOUNTER → 2022-06-16 | Outpatient (CLI) | payer MEDICARE, OTHER, SELFPAY ==
[2022-06-16 12:31] LABS: Absolute Lymphocyte Count 1.59 X10^3/uL (0.83-4.51); Absolute Neutrophil Count 3.4 X10^3/uL (2.0-7.7); Basophil# 0.04 X10^3/uL; Basophil% 0.7 % (0-1); Eosinophil# 0.07 X10^3/uL; Eosinophils% 1.2 % (0-5); Hemoglobin 14.4 g/dL (13.0-16.5); Lymphocyte # 1.59 X10^3/ul (0.83-4.51); Lymphocyte % 27.9 % (19-41); Mean Corpuscular Hgb 33.1 pg (27.0-32.0); Mean Corpuscular Volume 103.4 fL (80-94); Mean Platelet Vol. 9.3 fl (6.2-12.0); Monocyte% 10.5 % (0-10); NRBC Flagged by Analyzer 0 % (0-5); Neutrophil # 3.37 X10^3/uL (2.7-7.7); Neutrophil % 59.3 % (47-70); Platelet Count 198 K/mm3 (150-450); RBC Distribution Width CV 13.1 % (11.6-14.6); RBC Distribution Width SD 49.6 fl (35.1-43.9); Red Blood Count 4.35 M/mm3 (4.6-6.2); White Blood Count 5.7 K/mm3 (4.4-11.0)
[2022-06-16 12:45] LABS: ALB/GLOB Ratio 1.1 RATIO (0.9-2.4); AST(SGOT) 24 U/L (15-37); Alanine Aminotransfer ALT/SGPT 24 U/L (16-61); Albumin, Serum 3.9 g/dL (3.2-5.0); Alkaline Phosphatase 62 U/L (45-117); Anion Gap 6 (5-15); BUN 26 mg/dL (7-18); BUN/Creat Ratio 29.6 RATIO (10-20); Calcium,Total 10.3 mg/dL (8.5-10.1); Chloride 106 mmol/L (98-107); Creatinine, Serum 0.88 mg/dL (0.70-1.30); EST Glomerular Filtration Rate 89 mL/min (>60); Est Glom Filt Rate - Afr Amer 107 mL/min (>60); Globulin 3.4 g/dL (2.2-4.2); Glucose 105 mg/dL (74-106); Hemoglobin A1c 5.7 % (3.8-5.6); Potassium 4.3 mmol/L (3.5-5.1); Protein, Total 7.3 g/dL (6.4-8.2); Sodium Level 142 mmol/L (136-145)
== END | disposition home or self-care (01) ==
LOC: BIMLAB 08:11
PROVIDERS: PCP Internal Medicine; Referring Provider Psychiatry & Neurology Neurology; Visit Provider Psychiatry & Neurology Neurology
DX: G62.9 Polyneuropathy, unspecified (principal); R73.9 Hyperglycemia, unspecified
CPT/HCPCS: 36415; 80053; 83036; 85025

== ENCOUNTER → 2023-01-31 | Outpatient (CLI) | payer MEDICARE, OTHER, SELFPAY ==
[2023-01-31 12:17] LABS: Absolute Lymphocyte Count 1.32 X10^3/uL (0.83-4.51); Absolute Neutrophil Count 3.1 X10^3/uL (2.0-7.7); Basophil# 0.03 X10^3/uL; Basophil% 0.6 % (0-1); Eosinophil# 0.09 X10^3/uL; Eosinophils% 1.8 % (0-5); Hematocrit 45.6 % (40-54); Hemoglobin 14.4 g/dL (13.0-16.5); Lymphocyte # 1.32 X10^3/ul (0.83-4.51); Lymphocyte % 26.2 % (19-41); Mean Corp Hgb Conc 31.6 g/dL (32-36); Mean Corpuscular Hgb 32.7 pg (27.0-32.0); Mean Corpuscular Volume 103.4 fL (80-94); Mean Platelet Vol. 9.4 fl (6.2-12.0); Monocyte# 0.53 X10^3/uL; Monocyte% 10.5 % (0-10); NRBC Flagged by Analyzer 0 % (0-5); Neutrophil # 3.05 X10^3/uL (2.7-7.7); Neutrophil % 60.7 % (47-70); Platelet Count 197 K/mm3 (150-450); RBC Distribution Width CV 13.2 % (11.6-14.6); RBC Distribution Width SD 50.6 fl (35.1-43.9); Red Blood Count 4.41 M/mm3 (4.6-6.2)
[2023-01-31 12:32] LABS: ALB/GLOB Ratio 1.1 RATIO (0.9-2.4); AST(SGOT) 20 U/L (15-37); Alanine Aminotransfer ALT/SGPT 20 U/L (16-61); Albumin, Serum 3.9 g/dL (3.2-5.0); Alkaline Phosphatase 79 U/L (45-117); Anion Gap 6 (5-15); BUN 29 mg/dL (7-18); BUN/Creat Ratio 31.2 RATIO (10-20); Calcium,Total 10.3 mg/dL (8.5-10.1); Chloride 102 mmol/L (98-107); Cholesterol 163 mg/dL (200); Creatinine, Serum 0.93 mg/dL (0.70-1.30); EST Glomerular Filtration Rate 83 mL/min (>60); Est Glom Filt Rate - Afr Amer 100 mL/min (>60); Globulin 3.6 g/dL (2.2-4.2); Glucose 116 mg/dL (74-106); High Density Lipoprotein 51 mg/dL; PSA,Total - Annual Screen 1.01 ng/mL (0.00-4.00); Potassium 3.8 mmol/L (3.5-5.1); Protein, Total 7.5 g/dL (6.4-8.2); Sodium Level 139 mmol/L (136-145); Triglycerides 55 mg/dL; Very Low Density Lipoprotein 11 mg/dL (5-40)
[2023-01-31 13:15] LABS: Hemoglobin A1c 5.5 % (3.8-5.6)
== END | disposition home or self-care (01) ==
LOC: BIMLAB 08:16
PROVIDERS: PCP Internal Medicine; Referring Provider Internal Medicine; Visit Provider Internal Medicine
DX: R73.03 Prediabetes (principal); I10 Essential (primary) hypertension; Z12.5 Encounter for screening for malignant neoplasm of prostate
CPT/HCPCS: 36415; 80053; 80061; 83036; 84153; 85025; G0103

== ENCOUNTER → 2024-01-31 | Outpatient (CLI) | payer MEDICARE, OTHER, SELFPAY ==
[2024-01-31 12:20] LABS: Absolute Lymphocyte Count 1.25 X10^3/uL (0.83-4.51); Absolute Neutrophil Count 3.8 X10^3/uL (2.0-7.7); Basophil# 0.03 X10^3/uL; Basophil% 0.5 % (0-1); Eosinophils% 1.7 % (0-5); Hematocrit 41.3 % (40-54); Lymphocyte # 1.25 X10^3/ul (0.83-4.51); Lymphocyte % 21.7 % (19-41); Mean Corp Hgb Conc 33.9 g/dL (32-36); Mean Corpuscular Hgb 34.4 pg (27.0-32.0); Mean Corpuscular Volume 101.5 fL (80-94); Mean Platelet Vol. 9.5 fl (6.2-12.0); Monocyte# 0.53 X10^3/uL; Monocyte% 9.2 % (0-10); NRBC Flagged by Analyzer 0 % (0-5); Neutrophil # 3.83 X10^3/uL (2.7-7.7); Neutrophil % 66.4 % (47-70); Platelet Count 198 K/mm3 (150-450); RBC Distribution Width SD 48.6 fl (35.1-43.9); Red Blood Count 4.07 M/mm3 (4.6-6.2); White Blood Count 5.8 K/mm3 (4.4-11.0)
[2024-01-31 12:58] LABS: ALB/GLOB Ratio 1.1 RATIO (0.9-2.4); AST(SGOT) 20 U/L (15-37); Alanine Aminotransfer ALT/SGPT 18 U/L (16-61); Albumin, Serum 3.7 g/dL (3.2-5.0); Alkaline Phosphatase 65 U/L (45-117); Anion Gap 5 (5-15); BUN 28 mg/dL (7-18); BUN/Creat Ratio 32.3 RATIO (10-20); Calcium,Total 10.1 mg/dL (8.5-10.1); Chloride 104 mmol/L (98-107); Cholesterol 179 mg/dL (200); Creatinine, Serum 0.87 mg/dL (0.70-1.30); EST Glomerular Filtration Rate 89 mL/min (>60); Est Glom Filt Rate - Afr Amer 108 mL/min (>60); Globulin 3.5 g/dL (2.2-4.2); Glucose 107 mg/dL (74-106); High Density Lipoprotein 56 mg/dL; Protein, Total 7.2 g/dL (6.4-8.2); Sodium Level 138 mmol/L (136-145); Triglycerides 58 mg/dL; Very Low Density Lipoprotein 12 mg/dL (5-40)
== END | disposition home or self-care (01) ==
LOC: BIMLAB 08:59
PROVIDERS: PCP Internal Medicine; Visit Provider Internal Medicine
DX: I10 Essential (primary) hypertension (principal)
CPT/HCPCS: 80053; 80061; 85025

== ENCOUNTER → 2024-08-08 | Outpatient (CLI) | payer MEDICARE, OTHER, SELFPAY ==
[2024-08-09 11:02] LABS: Anion Gap 9 (5-15); BUN 29 mg/dL (4-19); BUN/Creat Ratio 33.3 RATIO (10-20); Calcium,Total 10.2 mg/dL (7.6-11.0); Carbon Dioxide 25.5 mmol/L (21.0-32.0); Chloride 102 mmol/L (98-108); Creatinine, Serum 0.88 mg/dL (0.70-1.20); EST Glomerular Filtration Rate 85 (>60); Glucose 116 mg/dL (70-99); Potassium 4.5 mmol/L (3.3-5.1); Sodium Level 136 mmol/L (133-145)
[2024-08-09 12:57] LABS: Hemoglobin A1c 5.9 % (<=5.6)
[2024-08-09 13:28] LABS: Magnesium 2.3 mg/dL (1.5-2.2); Thyroid Stim Hormone (TSH) 0.653 uIU/mL (0.300-4.200)
== END | disposition home or self-care (01) ==
LOC: BIMLAB 14:17
PROVIDERS: PCP Internal Medicine; Referring Provider Internal Medicine; Visit Provider Internal Medicine
DX: R73.03 Prediabetes (principal); I10 Essential (primary) hypertension; I49.9 Cardiac arrhythmia, unspecified
CPT/HCPCS: 36415; 80048; 83036; 83735; 84439; 84443

== ENCOUNTER → 2024-08-29 | Outpatient (CLI) | payer MEDICARE, OTHER, SELFPAY ==
--- NOTE | 2024-08-29 08:58 | RAD_ITS ---
PROCEDURE: FOOT MIN 3 VIEWS 08/29/2024 REASON FOR EXAM: BONY PROMINENCES IN FEET; EVAL FOR CHARCOT FRACTURE TECHNIQUE: 3 views of the right foot. COMPARISON: None. FINDINGS: Soft tissue edema and swelling. Mild osteopenia of the visualized bones. Degenerative joint disease. No fracture or dislocation is seen. No lytic or blastic bone lesion is noted. RAD/Foot min 3 Views IMPRESSION: Soft tissue edema. Reading [facility]
--- NOTE | 2024-08-29 09:05 | RAD_ITS ---
PROCEDURE: FOOT MIN 3 VIEWS 08/29/2024 REASON FOR EXAM: BONY PROMINENCES IN FEET, EVAL FOR CHARCOT FRACTURE TECHNIQUE: 3 views of the left foot. COMPARISON: None. FINDINGS: Soft tissue edema and swelling of the dorsum of the foot. Calcaneal spur formation. Enthesophyte formation at the calcaneal insertion of Achilles tendon. Mild osteopenia of the visualized bones. Degenerative joint disease. No fracture or dislocation is seen. No lytic or blastic bone lesion is noted. RAD/Foot min 3 Views IMPRESSION: Soft tissue edema and swelling. Reading [facility]
[2024-08-29 12:07] LABS: Vitamin B12 1592 pg/mL (180-914)
[2024-09-01 12:09] LABS: Vitamin D 1,25-Dihydroxy 55.2 pg/mL (24.8-81.5)
[2024-09-01 17:08] LABS: Folate, Hemolysate Test > 620.0 ng/mL (Not Estab.); Folate, RBC (Hct) Test 43.8 % (37.5-51.0); Folates, RBC Test > 1416 ng/mL (>498); Free Kappa Light Chains 26.6 mg/L (3.3-19.4); Free Lambda Light Chains 17.1 mg/L (5.7-26.3); Vitamin B1, Thiamine 177.2 nmol/L (66.5-200.0)
== END | disposition home or self-care (01) ==
LOC: MTLAB 08:58
PROVIDERS: PCP Internal Medicine; Referring Provider Psychiatry & Neurology Neurology; Visit Provider Psychiatry & Neurology Neurology
DX: G62.9 Polyneuropathy, unspecified (principal); M21.371 Foot drop, right foot; M21.372 Foot drop, left foot; M19.90 Unspecified osteoarthritis, unspecified site
CPT/HCPCS: 36415; 73630; 82607; 82652; 82747; 83883; 84425; 85014

== ENCOUNTER → 2024-09-12 | Outpatient (CLI) | payer MEDICARE, OTHER, SELFPAY ==
[2024-09-14 15:08] LABS: Albumin 3.8 g/dL (2.9-4.4); Alpha-1-Globulins 0.3 g/dL (0.0-0.4); Alpha-2-Globulins 0.8 g/dL (0.4-1.0); Gamma Globulin 1.3 g/dL (0.4-1.8); Immunoglobulin A 251 mg/dL (61-437); Immunoglobulin G 1233 mg/dL (603-1613); Immunoglobulin M 31 mg/dL (15-143)
== END | disposition home or self-care (01) ==
LOC: BIMLAB 08:23
PROVIDERS: PCP Internal Medicine; Referring Provider Psychiatry & Neurology Neurology; Visit Provider Psychiatry & Neurology Neurology
DX: G62.9 Polyneuropathy, unspecified (principal)
CPT/HCPCS: 36415; 82784; 84165; 86334; 86335

== ENCOUNTER → 2025-02-04 | Outpatient (CLI) | payer MEDICARE, OTHER, SELFPAY ==
[2025-02-04 10:31] LABS: Hematocrit 42.1 % (40-54); Hemoglobin 13.9 g/dL (13.0-16.5); Immature Granulocytes Count 0.020 X10^3/uL (0.0-0.0); Mean Corp Hgb Conc 33.0 g/dL (32-36); Mean Corpuscular Volume 100.7 fL (80-94); Mean Platelet Vol. 9.3 fl (6.2-12.0); NRBC Flagged by Analyzer 0 % (0-5); Platelet Count 196 K/mm3 (150-450); RBC Distribution Width CV 13.0 % (11.6-14.6); RBC Distribution Width SD 48.2 fl (35.1-43.9); Red Blood Count 4.18 M/mm3 (4.6-6.2); White Blood Count 6.0 K/mm3 (4.4-11.0)
[2025-02-04 11:15] LABS: AST(SGOT) 43 U/L (<=37); Alanine Aminotransfer ALT/SGPT 21 U/L (<=46); Albumin, Serum 4.4 g/dL (3.4-4.8); Alkaline Phosphatase 67 U/L (40-129); Anion Gap 14 (5-15); BUN 31 mg/dL (4-19); BUN/Creat Ratio 33.8 RATIO (10-20); Calcium,Total 10.7 mg/dL (7.6-11.0); Carbon Dioxide 23.8 mmol/L (21.0-32.0); Chloride 103 mmol/L (98-108); Cholesterol 183 mg/dL (<=200); Globulin 3.2 g/dL (2.2-4.2); Glucose 111 mg/dL (70-99); Low Density Lipoprotein Calc. 117 mg/dL; Potassium 4.2 mmol/L (3.3-5.1); Triglycerides 65 mg/dL; Very Low Density Lipoprotein 13 mg/dL (5-40); cholesterol:hdl ratio screen 3.40
== END | disposition home or self-care (01) ==
LOC: MTLAB 08:54
PROVIDERS: PCP Internal Medicine; Referring Provider Internal Medicine; Visit Provider Internal Medicine
DX: I10 Essential (primary) hypertension (principal); R73.03 Prediabetes
CPT/HCPCS: 36415; 80053; 80061; 83036; 85025